=== PATIENT | female | born 1955 | race American Indian/Alaskan Native ===

== ENCOUNTER 2020-03-25 08:19 | Emergency (ER) | payer SELFPAY ==
[2020-03-25 08:38] VITALS: BP 158/66
== END 2020-03-25 08:40 | disposition left against medical advice (07) ==
LOC: ED 08:19
DX: R07.89 Other chest pain (principal); Z53.21 Procedure and treatment not carried out due to patient leaving prior to being seen by health care provider
CPT/HCPCS: 93005